=== PATIENT | female | born 1970 | race Hispanic/Latino ===

== ENCOUNTER 2017-11-02 06:06 | Day surgery (SDC) | payer MEDICAID ==
--- NOTE | 2017-11-02 07:46 | Anesthesia Consultation ---
Anesthesia Consult and Med Hx Date of service: 11/02/17 - Airway Anesthetic Teeth Evaluation: Good, Partials ROM Head & Neck: Adequate Mental/Hyoid Distance: Adequate Mallampati Class: Class II Intubation Access Assessment: Probably Good - Pre-Operative Health Status ASA Pre-Surgery Classification: ASA3 Proposed Anesthetic Plan: MAC - Pulmonary Hx Smoking: Yes - Central Nervous System Hx Back Pain: Yes - Gastrointestinal Hx Gastroesophageal Reflux Disease: Yes (chronic abdominal pain) - Hematic Hx Anemia: Yes - Other Systems Hx Obesity: Yes (BMI 34.8)
--- NOTE | 2017-11-02 07:47 | Anesthesia Day of Surgery ---
Anesthesia Day of Surgery - Day of Surgery Patient Examined: Yes Patient H&P Reviewed: Yes Patient is NPO: Yes
[2017-11-02] MEDS: NACL 0.9% 1000 ML 1,000 ML IV SCH ×2 (07:57→08:49)
[2017-11-02] MEDS ORDERED: WATER FOR IRRIG STERILE IR ONE (08:00)
[2017-11-02] MEDS ORDERED: HURRICAINE ONE 20% TOPICAL SPRAY MM (08:00)
--- NOTE | 2017-11-02 08:54 | Operative Report ---
Operative Report Operative Report: EGD Post bypass DATE: 11/02/17 OPERATIVE REPORT - EGD PREOP DIAGNOSIS: gastric dyspepsia POSTOP DIAGNOSIS: Marginal ulcer, distal esophagitis SURGERY: Upper endoscopy. SURGEON: Dr. Turk BLOOD BANK ASSISTANT: Dr. Pily MARTI TYPE OF ANESTHESIA: MAC. ESTIMATED BLOOD LOSS: None. COMPLICATIONS: None. SPECIMENS REMOVED: GE junction biopsy FINDINGS: 1. Distal esophagitis 2. gastric pouch - 80ml 3. gastrojejunal anastomosis is 30mm 4. Marginal ulcer INDICATIONS:INDICATION FOR PROCEDURE: Patient is a 47-year-old F s/p gastric bypass in 2005. The patient had a type of "revision" in 2013. She is c/o burning in her throat and feeling as foot is getting stuck in her throat/ stomach. She has tried nexium and carafate. She had an upper GI at [facility] recently. The patient is here today for evaluation for revisional surgery and evaluation of her symptoms. PROCEDURE DETAILS: After consent was reviewed, patient was taken back to the operating room where patient was placed in the left lateral decubitus position and a bite block was placed in the mouth. After a time-out was called, MAC anesthesia was initiated. I then passed the endoscope into the patients oropharynx, into the esophagus, visualized the entire esophagus, which showed distal esophatitis. I then visualized the gastric pouch which was large and about 80ml in size. The gastrojejunal anastomosis had a marginal ulcer with a clean white base. No active bleeding. The tissue surrounding the ulcer was friable. The GJ was about 30mm. The proximal portion of the gwyn limb did not show any other ulcers. The distal esophagitis showed distal esophagitis and a biopsy at the GE junction was performed. I then desufflated the gastric pouch and removed the endoscope. Patient tolerated procedure well and was transferred to recovery room in good and stable condition
--- NOTE | 2017-11-02 08:55 | Discharge Summary ---
Providers - Providers Attending physician: JOHN TURK Hospitalization Procedures: egd Hospital course: 47 y.o. F presented to the endoscopy area for egd for eval of dyspepsia. She has a hx of lap gastric bypass in 2005, and "revision" in 2013. She tolerated the procedure well. She was given rx for carafate and omeprazole since a marginal ulcer was seen. Disposition: DC-01 TO HOME OR SELFCARE Core Measure Documentation - Palliative Care Palliative Care/ Comfort Measures: Not Applicable - Core Measures Any of the following diagnoses?: none Exam - Physical Exam Narrative exam: no change from prior - Constitutional Vitals: Temp Pulse Resp BP Pulse Ox 98.0 F 84 20 137/85 96 11/02/17 07:37 11/02/17 07:37 11/02/17 07:37 11/02/17 07:37 11/02/17 07:37 Plan Activity: no restrictions Additional Instructions: Pt given rx for omeprazole and carafate. Follow up with Dr. Turk
[2017-11-02] MEDS ORDERED: DIPRIVAN 10 MG/ML IV ONE ×2 (08:59)
[2017-11-02 09:26] VITALS: BP 129/84
--- NOTE | 2017-11-02 15:08 | Post Anesthesia Evaluation ---
- Post Anesthesia Evaluation Patient Participated: Yes Airway Patent: Yes Stable Respiratory Function: Yes Nausea/Vomiting: No Temp > 96.8F: Yes Pain Manageable: Yes Adequeate Hydration: Yes Anesthesia Complications: No
== END 2017-11-02 06:07 | disposition home or self-care (01) ==
LOC: GIO 06:06
PROVIDERS: ATTEND Specialist
DX: K28.9 Gastrojejunal ulcer, unspecified as acute or chronic, without hemorrhage or perforation (principal); K21.0 Gastro-esophageal reflux disease with esophagitis; I10 Essential (primary) hypertension; Z98.84 Bariatric surgery status; Z98.0 Intestinal bypass and anastomosis status; E66.9 Obesity, unspecified; Z68.34 Body mass index [BMI] 34.0-34.9, adult; F17.200 Nicotine dependence, unspecified, uncomplicated
CPT/HCPCS: 43239; 88305; 88342; J2704; J7030